=== PATIENT | male | born 1945 | race Caucasian/White ===

== ENCOUNTER 2024-04-26 05:42 | Emergency (ER) | payer MEDICARE ==
[2024-04-26] MEDS ORDERED: predniSONE 20 MG TAB ONE (06:41)
== END 2024-04-26 06:51 | disposition home or self-care (01) ==
LOC: NAV ERS 05:42
DX: J06.9 Acute upper respiratory infection, unspecified (principal); I48.91 Unspecified atrial fibrillation; Z79.01 Long term (current) use of anticoagulants
CPT/HCPCS: 87428; 99283; J7512